=== PATIENT | female | born 1980 | race Two or more races ===

== ENCOUNTER 2016-09-03 14:49 | Emergency (ER) | payer SELFPAY ==
[~2016-09-03] VITALS: Ht 157.5 cm; Wt 65.8 kg
[2016-09-03 15:00] VITALS: BP 129/87
[2016-09-03] MEDS ORDERED: IBUPROFEN 600 MG TAB PO ONE (16:30)
== END 2016-09-03 17:21 | disposition home or self-care (01) ==
LOC: ER 15:01
DX: S62.337A Displaced fracture of neck of fifth metacarpal bone, left hand, initial encounter for closed fracture (principal); W20.8XXA Other cause of strike by thrown, projected or falling object, initial encounter; Y93.89 Activity, other specified; Y99.8 Other external cause status; Y92.89 Other specified places as the place of occurrence of the external cause
CPT/HCPCS: 29125; 73130